=== PATIENT | female | born 1960 | race Two or more races ===

== ENCOUNTER 2016-04-16 23:03 | Emergency (ER) | payer MEDICAID ==
[~2016-04-16] VITALS: Ht 162.6 cm; Wt 70.3 kg
[~2016-04-16 23:03] MED LIST: CRESTOR; ENALAPRIL; INSULIN; LEVOTHYROXINE; METOPROLOL; [UNRECOGNIZED DRUG - OTHER]
[2016-04-16 23:25] VITALS: BP 167/103
[2016-04-17 00:02] LABS: Basophils # (auto) 0 uL; Eosinophils # (auto) 0 uL; Eosinophils % (auto) 0.9 % (0.0-7.0); Hematocrit 40.6 % (36.0-46.0); Hemoglobin 13.1 g/dL (12.2-16.2); Lymphocytes # (auto) 1.1 uL; Mean Corpuscular Hemoglobin 30.5 pg (28.0-32.0); Mean Corpuscular Hgb Conc. 32.3 g/dL (32.0-36.0); Mean Corpuscular Volume 94.1 fL (80.0-100.0); Mean Platelet Volume 8.3 fL (7.4-10.4); Monocytes # (auto) 0.3 uL; Monocytes % (auto) 6.2 % (0.0-12.0); Neutrophils # (auto) 2.9 uL; Neutrophils % (auto) 65.9 % (37.0-80.0); Platelet Count (auto) 258 10^3/uL (140-450); Red Cell Distribution Width 12.9 % (11.6-16.0); White Blood Cell 4.3 10^3/uL (4.4-10.8)
[2016-04-17 00:24] LABS: Albumin 3.8 g/dL (3.4-5.0); BUN/Creatinine Ratio 15.9; Calcium 8.6 mg/dL (8.5-10.1); Potassium 3.6 mmol/L (3.5-5.1)
[2016-04-17 00:27] LABS: Bilirubin, Total 0.3 mg/dL (0.2-1.0); Total Protein 8.3 g/dL (6.4-8.2)
== END 2016-04-17 05:40 | disposition left against medical advice (07) ==
LOC: ER 23:08
DX: R10.30 Lower abdominal pain, unspecified (principal); R30.9 Painful micturition, unspecified; Z53.21 Procedure and treatment not carried out due to patient leaving prior to being seen by health care provider
CPT/HCPCS: 36415; 80053; 85025; 93005